=== PATIENT | female | born 1980 | race Hispanic/Latino ===

== ENCOUNTER → 2019-06-05 | Outpatient (CLI) | payer OTHER | LOC: MAMMO 15:20 | PROVIDERS: ATTEND Internal Medicine | DX: Z12.31 Encounter for screening mammogram for malignant neoplasm of breast (principal) | CPT/HCPCS: 77067 ==

== ENCOUNTER → 2021-04-07 | Outpatient (CLI) | payer OTHER | LOC: MAMMO 15:30 | PROVIDERS: ATTEND Obstetrics & Gynecology | DX: Z12.31 Encounter for screening mammogram for malignant neoplasm of breast (principal) | CPT/HCPCS: 77067 ==

== ENCOUNTER 2022-03-19 17:28 | Emergency (ER) | payer OTHER ==
[~2022-03-19] VITALS: Ht 165.1 cm; Wt 59.0 kg
[2022-03-19] MEDS ORDERED: SODIUM CHLORIDE FLUSH 10 ML SYR INJ PRN (18:30)
[2022-03-19 18:47] LABS: BASOPHILS # (AUTO) 0.1 (0.0-0.1); BASOPHILS % 0.7 % (0.0-1.0); EOSINOPHILS # (AUTO) 0.1 (0.0-0.4); EOSINOPHILS % 0.8 % (0.0-6.0); HEMATOCRIT 38.2 % (34.2-44.1); HEMOGLOBIN 12.6 g/dL (12.0-16.0); LYMPHOCYTES # (AUTO) 1.7 (1.0-3.2); LYMPHOCYTES % 22.7 % (18.0-39.1); MEAN CORPUSCULAR HEMOGLOBIN 30.6 pg (28-32); MEAN CORPUSCULAR VOLUME 92.7 fL (81-99); MONOCYTES # (AUTO) 0.4 (0.2-0.8); MONOCYTES % 4.7 % (4.4-11.3); NEUTROPHILS # (AUTO) 5.3 (2.1-6.9); NEUTROPHILS % 70.8 % (38.7-80.0); PLATELET COUNT 293 x10e3/uL (140-360); RED BLOOD COUNT 4.12 x10e6/uL (3.6-5.1); RED CELL DISTRIBUTION WIDTH 13.4 % (11.7-14.4)
[2022-03-19 18:51] LABS: AMPHETAMINES SCREEN,URINE NEGATIVE (NEGATIVE); CLARITY,URINE CLEAR (CLEAR); COLOR,URINE YELLOW (YELLOW); KETONES,URINE NEGATIVE (NEGATIVE); LEUKOCYTE ESTERASE ,URINE NEGATIVE (NEGATIVE); NITRITE,URINE NEGATIVE (NEGATIVE); PHENCYCLIDINE SCREEN,URINE NEGATIVE (NEGATIVE); PROTEIN,URINE DIPSTICK NEGATIVE (NEGATIVE)
[2022-03-19 18:52] LABS: BENZODIAZEPINES SCREEN,URINE NEGATIVE (NEGATIVE); URINE UROBILINOGEN 0.2 mg/dL (0.2 - 1)
[2022-03-19 19:04] LABS: ALANINE AMINOTRANSFERASE 12 IU/L (0-55); ALBUMIN 4.1 g/dL (3.5-5.0); ALBUMIN/GLOBULIN RATIO 1.2 (0.8-2.0); ALKALINE PHOSPHATASE 65 IU/L (40-150); BLOOD UREA NITROGEN 8 mg/dL (7-26); BUN/CREATININE RATIO 11 (6-25); CALCIUM 9.3 mg/dL (8.4-10.2); CARBON DIOXIDE 23 mmol/L (22-29); CHLORIDE 109 mmol/L (98-107); CREATININE, SERUM 0.76 mg/dL (0.57-1.11); EPITHELIAL CELLS,URINE FEW /LPF; GLUCOSE 99 mg/dL (74-118); SODIUM 142 mmol/L (136-145)
[2022-03-19] MEDS ORDERED: ACETAMINOPHEN 325 MG TAB PO ONE (20:00)
[2022-03-19] MEDS ORDERED: ACETAMINOPHEN 325 MG TAB ONE (20:07)
[2022-03-20] MEDS ORDERED: HYDROXYZINE HCL 10 MG TAB PO ONE (01:45)
[2022-03-20] MEDS ORDERED: HYDROXYZINE HCL 10 MG TAB ONE (01:55)
[2022-03-20 03:38] VITALS: BP 106/70
== END 2022-03-20 04:15 ==
LOC: ER 17:50
DX: R45.851 Suicidal ideations (principal); F32.A Depression, unspecified; F41.9 Anxiety disorder, unspecified; Z20.822 Contact with and (suspected) exposure to COVID-19
CPT/HCPCS: 0223U; 36415; 80053; 80307; 80320; 80329; 81001; 84702; 85025; 99284; J3410; 93005